=== PATIENT | female | born 1970 | race Caucasian/White ===

== ENCOUNTER 2021-08-07 14:27 | Emergency (ER) | payer OTHER | END 2021-08-07 16:46 | disposition left against medical advice (07) | LOC: CSHERS 14:27 | DX: Z53.21 Procedure and treatment not carried out due to patient leaving prior to being seen by health care provider (principal) ==

== ENCOUNTER 2021-09-21 02:00 | Emergency (ER) | payer OTHER ==
[2021-09-21 03:25] LABS: #Eosinphils 0.2 10x3/uL (0.0-0.5); #Monocytes 1.1 10x3/uL (0.0-1.1); #Neutrophils 6.8 10x3/uL (1.5-8.4); %Basophils 0.4 % (0.0-2.0); %Eosinophils 2.1 % (0.0-6.0); %Lymphocytes 14.5 % (18.0-47.0); %Monocytes 11.2 % (0.0-10.0); %Neutrophils 71.2 % (40.0-75.0); Hemoglobin 8.3 g/dL (12.0-15.5); Mean Corpuscular HGB CONC 32.7 g/dL (32.0-36.0); Mean Corpuscular Hemoglobin 29.4 pg (27.0-33.0); Mean Corpuscular Volume 90.1 fl (81.6-98.3); Mean Platelet Volume 9.6 fl (7.4-10.4); Platelet Count 311 10x3/uL (150-450); RBC Distribution Width 14.7 % (11.5-14.5); Red Blood Cell (RBC) Count 2.82 10x6/uL (3.90-5.03); White Blood Cell (WBC) Count 9.6 10x3/uL (3.5-10.5)
[2021-09-21 04:10] LABS: ALT (SGPT) 45 U/L (8-55); AST (SGOT) 54 U/L (5-34); Albumin 3.5 g/dL (3.5-5.0); Alkaline Phosphatase 366 U/L (40-110); Anion Gap 16 mmol/L (10-20); BUN (Urea Nitrogen) 16 mg/dL (7.0-18.7); Bilirubin, Total 0.2 mg/dL (0.2-1.2); Calc. Creatinine Clearance 0 mL/min (70-130); Calcium 8.6 mg/dL (7.8-10.44); Carbon Dioxide 22 mmol/L (22-29); Chloride 101 mmol/L (98-107); Globulin 3.2 g/dL (2.4-3.5); Glucose 408 mg/dL (70-105); Potassium 4.3 mmol/L (3.5-5.1); Protein, Total 6.7 g/dL (6.0-8.3); Sodium 135 mmol/L (136-145)
[2021-09-21 05:54] LABS: SARS-CoV-2 NAA Rapid Test DETECTED (NotDetected)
[2021-09-21] MEDS ORDERED: Ondansetron PF 4 MG/2 ML Vial ONE (05:56)
== END 2021-09-21 06:31 | disposition home or self-care (01) ==
LOC: CSHERS 02:00
DX: U07.1 COVID-19 (principal); K21.9 Gastro-esophageal reflux disease without esophagitis; E10.9 Type 1 diabetes mellitus without complications; E78.5 Hyperlipidemia, unspecified; I10 Essential (primary) hypertension; F17.210 Nicotine dependence, cigarettes, uncomplicated
CPT/HCPCS: 36415; 71045; 71275; 80053; 83880; 84484; 85025; 85379; 87804; 96374; J2405; U0002

== ENCOUNTER 2022-04-21 21:29 | Emergency (ER) | payer OTHER ==
[2022-04-21] MEDS ORDERED: Morphine 4 MG/ML VIAL ONE (22:32)
[2022-04-21] MEDS ORDERED: Ketorolac Tromethamine 30 MG/ML VIAL ONE (22:32)
[2022-04-21 23:15] LABS: #Basophils 0.1 10x3/uL (0.0-0.2); #Eosinphils 0.1 10x3/uL (0.0-0.5); #Monocytes 0.6 10x3/uL (0.0-1.1); #Neutrophils 5.4 10x3/uL (1.5-8.4); %Basophils 0.7 % (0.0-2.0); %Eosinophils 1.2 % (0.0-6.0); %Lymphocytes 29.3 % (18.0-47.0); %Monocytes 6.6 % (0.0-10.0); %Neutrophils 61.9 % (40.0-75.0); Hemoglobin 11.4 g/dL (12.0-15.5); Mean Corpuscular Volume 86.1 fl (81.6-98.3); Mean Platelet Volume 10.1 fl (7.4-10.4); Platelet Count 264 10x3/uL (150-450); RBC Distribution Width 12.2 % (11.5-14.5); Red Blood Cell (RBC) Count 3.68 10x6/uL (3.90-5.03); White Blood Cell (WBC) Count 8.7 10x3/uL (3.5-10.5)
[2022-04-21 23:22] LABS: Actual Bicarbonate (HCO3v) 28 mEq/L (22-28); Base Excess 3.8 mEq/L (-2.0 to +3.0); Calcium, Ionized (venous) 1.15 mmol/L (1.16-1.32); Chloride (VBG) 96 mmol/L (98-106); Hemoglobin (Hb) 12.4 g/dL (11.7-16.0); Potassium (VBG) 3.96 mmol/L (3.70-5.30); Puncture Site Other Site; RapidComm Collect By LAB; Sodium 129.6 mmol/L (133-146); pH (venous) 7.46 (7.32-7.43)
[2022-04-21 23:28] LABS: BHCG - Serum Negative (NEGATIVE); Pregs Control Background? CLEAR/WHITE (CLR/WHITE); Pregs Control Bar Appear? YES (CONTROL BAR)
[2022-04-21 23:36] LABS: ALT (SGPT) 9 U/L (8-55); AST (SGOT) 8 U/L (5-34); Albumin 3.6 g/dL (3.5-5.0); Alkaline Phosphatase 78 U/L (40-110); Anion Gap 16 mmol/L (10-20); BUN (Urea Nitrogen) 17 mg/dL (7.0-18.7); Bilirubin, Total 0.3 mg/dL (0.2-1.2); Calc. Creatinine Clearance 0 mL/min (70-130); Calcium 9.7 mg/dL (7.8-10.44); Carbon Dioxide 23 mmol/L (22-29); Chloride 94 mmol/L (98-107); Estimated GFR 62; Globulin 3.2 g/dL (2.4-3.5); Magnesium 1.6 mg/dL (1.6-2.6); Phosphorus 3.8 mg/dL (2.3-4.7); Potassium 3.9 mmol/L (3.5-5.1); Protein, Total 6.8 g/dL (6.0-8.3); Sodium 129 mmol/L (136-145)
[2022-04-21 23:39] LABS: Glucose 612 mg/dL (70-105)
[2022-04-22] MEDS ORDERED: Lantus 1000 UNITS/10 ML VIAL SC SCH (02:00)
== END 2022-04-22 03:40 | disposition home or self-care (01) ==
LOC: CSHERS 21:29
DX: E10.65 Type 1 diabetes mellitus with hyperglycemia (principal); M54.42 Lumbago with sciatica, left side; I10 Essential (primary) hypertension; F17.210 Nicotine dependence, cigarettes, uncomplicated; K21.9 Gastro-esophageal reflux disease without esophagitis; Z79.4 Long term (current) use of insulin
CPT/HCPCS: 36415; 36416; 80053; 82010; 82805; 83735; 84100; 84703; 85025; 96361; 96374; 96375; J1815; J1885; J2270

== ENCOUNTER 2022-05-07 13:43 | Inpatient (IN) | payer OTHER ==
[2022-05-07 14:08] LABS: Actual Bicarbonate (HCO3v) 19 mEq/L (22-28); Base Excess -4.3 mEq/L (-2.0 to +3.0); Calcium, Ionized (venous) 1.11 mmol/L (1.16-1.32); Chloride (VBG) 75 mmol/L (98-106); Hemoglobin (Hb) 14.1 g/dL (11.7-16.0); Potassium (VBG) 3.33 mmol/L (3.70-5.30); Puncture Site Other Site; pH (venous) 7.42 (7.32-7.43)
[2022-05-07 14:14] LABS: #Monocytes 0.9 10x3/uL (0.0-1.1); #Neutrophils 10.9 10x3/uL (1.5-8.4); %Basophils 0.3 % (0.0-2.0); %Eosinophils 0.1 % (0.0-6.0); %Lymphocytes 16.1 % (18.0-47.0); %Monocytes 6.2 % (0.0-10.0); %Neutrophils 76.9 % (40.0-75.0); Hemoglobin 13.5 g/dL (12.0-15.5); Mean Corpuscular HGB CONC 35.7 g/dL (32.0-36.0); Mean Corpuscular Hemoglobin 30.8 pg (27.0-33.0); Mean Corpuscular Volume 86.1 fl (81.6-98.3); Mean Platelet Volume 10.5 fl (7.4-10.4); Platelet Count 462 10x3/uL (150-450); RBC Distribution Width 11.8 % (11.5-14.5); Red Blood Cell (RBC) Count 4.39 10x6/uL (3.90-5.03); White Blood Cell (WBC) Count 14.1 10x3/uL (3.5-10.5)
[2022-05-07] MEDS ORDERED: Ondansetron PF 4 MG/2 ML Vial ONE (14:34)
[2022-05-07 14:54] LABS: Bilirubin Neg (Negative); Blood, Urine 25 (Negative); Glucose, Urine (Dipstick) >=1000 mg/dL (Negative); Ketone, Urine 150 mg/dL (Negative); Leukocyte 25 (Negative); Nitrite Negative (Negative); Protein, Urine (Dipstick) 100 mg/dl (Neg-Trace); Urobilinogen Normal mg/dL (Less than 2)
[2022-05-07 15:03] LABS: ALT (SGPT) 11 U/L (8-55); AST (SGOT) 9 U/L (5-34); Albumin 3.9 g/dL (3.5-5.0); Alkaline Phosphatase 103 U/L (40-110); Anion Gap 41 mmol/L (10-20); BUN (Urea Nitrogen) 69 mg/dL (7.0-18.7); Bilirubin, Total 0.3 mg/dL (0.2-1.2); Calc. Creatinine Clearance 0 mL/min (70-130); Calcium 9.8 mg/dL (7.8-10.44); Carbon Dioxide 21 mmol/L (22-29); Estimated GFR 24; Globulin 3.6 g/dL (2.4-3.5); Magnesium 2.7 mg/dL (1.6-2.6); Phosphorus 5.2 mg/dL (2.3-4.7); Potassium 3.2 mmol/L (3.5-5.1); Protein, Total 7.5 g/dL (6.0-8.3); Sodium 127 mmol/L (136-145)
[2022-05-07 15:05] LABS: Clarity Cloudy (Clear)
[2022-05-07 15:08] LABS: Chloride 68 mmol/L (98-107); Glucose 747 mg/dL (70-105)
[2022-05-07 15:11] LABS: Amphetamine Not Detected (NotDetected); Barbiturates Screen Not Detected (NotDetected); Benzodiazepine Screen Not Detected (NotDetected); Cocaine Metabolite Screen Not Detected (NotDetected); Methadone Not Detected (NotDetected); Methamphetamine Not Detected (NotDetected); Opiate Screen Not Detected (NotDetected); Oxycodone Screen Not Detected (NotDetected); Phencyclidine (PCP) Not Detected (NotDetected); THC/Cannabinoid Screen Detected (NotDetected); Tricyclic Screen Not Detected (NotDetected)
[2022-05-07 15:12] LABS: RBC/HPF 0-3 HPF (0-3)
[2022-05-07 15:13] LABS: Bacteria/HPF 1+ HPF (None Seen)
[2022-05-07] MEDS ORDERED: Morphine 4 MG/ML VIAL ONE (15:29)
[2022-05-07] MEDS ORDERED: NS 0.9% w/ 20 MEQ KCL 1,000 ML ONE (15:29)
[2022-05-07] MEDS ORDERED: cefTRIAXone\\ROCEPHIN 2 GM VIAL ONE (15:53)
[2022-05-07] MEDS ORDERED: Aspirin 300 MG Suppository ONE (15:53)
[2022-05-07] MEDS ORDERED: NS 0.9% w/ 20 MEQ KCL 1,000 ML IV PRN ×2 (16:05)
[2022-05-07] MEDS ORDERED: Electrolyte Replacement Protocol 1 EACH IVPB SCH (16:05)
[2022-05-07] MEDS ORDERED: Dextrose 5 %-0.45 % NaCl 1,000 ML IV PRN (16:05)
[2022-05-07] MEDS ORDERED: Sodium Chloride 0.9% 1,000 ML IV PRN ×4 (16:05)
[2022-05-07] MEDS ORDERED: Insulin Regular 300 UNITS/3 ML VIAL IVP SCH (16:15)
[2022-05-07] MEDS ORDERED: HUMULIN R 100 UNITS in Sodium Chloride 0.9% 100 ML IVPB SCH (16:15)
[2022-05-07] MEDS ORDERED: Insulin Regular 300 UNITS/3 ML VIAL ONE (16:27)
[2022-05-07] MEDS ORDERED: INSULIN REGULAR IN 0.9 % NACL 100 UNIT/100 ML BAG ONE (16:28)
[2022-05-07] MEDS ORDERED: Dextrose 50% Abboject 50 ML SYRINGE SLOW IVP PRN (16:30)
[2022-05-07] MEDS ORDERED: Dextrose 5% in Water 1,000 ML IV PRN (16:30)
[2022-05-07 16:52] LABS: Anion Gap 36 mmol/L (10-20); BUN (Urea Nitrogen) 61 mg/dL (7.0-18.7); Calc. Creatinine Clearance 0 mL/min (70-130); Calcium 8.4 mg/dL (7.8-10.44); Carbon Dioxide 19 mmol/L (22-29); Chloride 81 mmol/L (98-107); Estimated GFR 26; Potassium 3.3 mmol/L (3.5-5.1); Sodium 133 mmol/L (136-145)
[2022-05-07 17:16] LABS: Glucose 646 mg/dL (70-105)
[2022-05-07 17:31] LABS: Troponin I 0.033 ng/mL (< 0.028)
[2022-05-07 17:57] VITALS: BMI 24.7
[2022-05-07] MEDS ORDERED: INSULIN REGULAR IN 0.9 % NACL 100 UNIT in Premix Bag 1 BAG IVPB SCH (18:15)
[2022-05-07] MEDS ORDERED: Potassium Chloride 20 MEQ in Premix Bag 1 BAG IVPB SCH ×2 (18:15→22:00)
[2022-05-07 18:31] LABS: Glucose 468 mg/dL (70-105)
[2022-05-07] MEDS ORDERED: hydrALAZINE 20 MG/ML VIAL SLOW IVP PRN (18:42)
[2022-05-07] MEDS ORDERED: Electrolyte Replacement Protocol 1 EACH FS SCH (18:45)
[2022-05-07] MEDS: Famotidine/PF 20 mg/2ml Vial SLOW IVP SCH (20:32)
[2022-05-07] MEDS: Heparin 5,000 UNITS/ML VIAL SC SCH (20:32)
[2022-05-07 20:54] LABS: Anion Gap 23 mmol/L (10-20); BUN (Urea Nitrogen) 55 mg/dL (7.0-18.7); Calc. Creatinine Clearance 50 mL/min (70-130); Calcium 5.3 mg/dL (7.8-10.44); Carbon Dioxide 27 mmol/L (22-29); Chloride 92 mmol/L (98-107); Estimated GFR 38; Glucose 221 mg/dL (70-105); Potassium 3.1 mmol/L (3.5-5.1); Sodium 139 mmol/L (136-145)
[2022-05-07 20:55] LABS: Troponin I 0.035 ng/mL (< 0.028)
[2022-05-07 21:08] LABS: SARS-CoV-2 NAA Rapid Test Not Detected (NotDetected)
[2022-05-07] MEDS: D5 1/2 NS w/20 mEq KCL 1,000 ML IV PRN (21:15)
[2022-05-07] MEDS: CALCIUM GLUC 1GM/NS 50ML 1 GM in Premix Bag 1 BAG IVPB SCH ×2 (22:11→22:38)
[2022-05-08] MEDS ORDERED: Labetalol HCl 100 MG/20 ML VIAL SLOW IVP SCH (01:00)
[2022-05-08 01:07] LABS: Anion Gap 17 mmol/L (10-20); BUN (Urea Nitrogen) 48 mg/dL (7.0-18.7); Calc. Creatinine Clearance 49 mL/min (70-130); Calcium 8.8 mg/dL (7.8-10.44); Carbon Dioxide 27 mmol/L (22-29); Chloride 98 mmol/L (98-107); Estimated GFR 36; Glucose 258 mg/dL (70-105); Potassium 3.5 mmol/L (3.5-5.1); Sodium 138 mmol/L (136-145)
[2022-05-08] MEDS: D5 1/2 NS w/20 mEq KCL 1,000 ML IV PRN ×2 (01:57→05:41)
[2022-05-08] MEDS: traMADol HCl 50 MG TAB PO PRN ×3 (02:54→21:27)
[2022-05-08] MEDS ORDERED: Ondansetron PF 4 MG/2 ML Vial IVP SCH (03:00)
[2022-05-08 04:08] LABS: #Monocytes 0.9 10x3/uL (0.0-1.1); %Basophils 0.2 % (0.0-2.0); %Eosinophils 0.2 % (0.0-6.0); %Monocytes 7.4 % (0.0-10.0); %Neutrophils 72.8 % (40.0-75.0); Hemoglobin 10.7 g/dL (12.0-15.5); Mean Corpuscular HGB CONC 36.5 g/dL (32.0-36.0); Mean Corpuscular Hemoglobin 30.8 pg (27.0-33.0); Mean Corpuscular Volume 84.4 fl (81.6-98.3); Mean Platelet Volume 9.8 fl (7.4-10.4); RBC Distribution Width 12.1 % (11.5-14.5); Red Blood Cell (RBC) Count 3.47 10x6/uL (3.90-5.03); White Blood Cell (WBC) Count 12.6 10x3/uL (3.5-10.5)
[2022-05-08 04:09] LABS: Platelet Count 347 10x3/uL (150-450)
[2022-05-08 04:18] LABS: Anion Gap 13 mmol/L (10-20); BUN (Urea Nitrogen) 43 mg/dL (7.0-18.7); Calc. Creatinine Clearance 53 mL/min (70-130); Calcium 8.8 mg/dL (7.8-10.44); Carbon Dioxide 29 mmol/L (22-29); Chloride 100 mmol/L (98-107); Estimated GFR 40; Glucose 122 mg/dL (70-105); Magnesium 1.9 mg/dL (1.6-2.6); Sodium 139 mmol/L (136-145)
[2022-05-08 04:26] LABS: Phosphorus Less than 1.0 mg/dL (2.3-4.7)
[2022-05-08] MEDS ORDERED: Magnesium 2 GM/50 ML(in water) 2 GM in Premix Bag 1 BAG IVPB SCH (05:00)
[2022-05-08] MEDS ORDERED: Potassium Chloride 20 MEQ in Premix Bag 1 BAG IVPB SCH (05:00)
[2022-05-08] MEDS ORDERED: Potassium Phosphate 30 MMOL in Sodium Chloride 0.9% 250 ML 250 ML IVPB SCH (06:00)
[2022-05-08] MEDS: Lantus 1000 UNITS/10 ML VIAL SC SCH ×2 (08:15→20:13)
[2022-05-08] MEDS: Heparin 5,000 UNITS/ML VIAL SC SCH ×2 (08:15→20:21)
[2022-05-08] MEDS: PHOS-NAK 1 PKT PACK PO SCH ×3 (08:15→20:17)
[2022-05-08] MEDS: NS 0.9% w/ 20 MEQ KCL 1,000 ML/1,000 ML BAG IV SCH ×2 (09:58→20:12)
[2022-05-08] MEDS ORDERED: Mag-Al 1200 mg/1200 mg/30 ML UDCUP PO PRN (10:50)
[2022-05-08] MEDS: Calcium Carbonate 500 MG ChewTAB PO PRN (11:02)
[2022-05-08] MEDS: HumaLOG 300 UNITS/3 ML VIAL SC PRN ×3 (11:36→20:17)
[2022-05-08] MEDS: Acetaminophen 325 MG TAB PO PRN (11:42)
[2022-05-08] MEDS ORDERED: Lidocaine 2% Viscous Solution 10 ML, Aluminum & Magnesium Hydroxide 30 ML SSW SCH ×2 (11:45→22:00)
[2022-05-08] MEDS: Metoclopramide HCl 10 MG/2 ML VIAL IVP SCH ×3 (12:04→20:15)
[2022-05-08 12:41] LABS: Hemoglobin A1c Greater than 14.0 % (4.0-6.0)
[2022-05-08 13:38] LABS: Magnesium 2.3 mg/dL (1.6-2.6); Phosphorus 2.2 mg/dL (2.3-4.7)
[2022-05-08] MEDS: Cepastat Lozenges 1 LOZ PO PRN ×2 (15:46→18:22)
[2022-05-08] MEDS: cefTRIAXone\\ROCEPHIN 1 GM in Sodium Chloride 0.9% 100 ML IVPB SCH (15:46)
[2022-05-08] MEDS ORDERED: NS 0.9% w/ 20 MEQ KCL 1,000 ML ONE ×2 (19:58→19:59)
[2022-05-08] MEDS: Famotidine/PF 20 mg/2ml Vial SLOW IVP SCH (20:19)
[2022-05-09] MEDS: Cepastat Lozenges 1 LOZ PO PRN ×2 (02:00→04:22)
[2022-05-09 03:53] LABS: Anion Gap 12 mmol/L (10-20); BUN (Urea Nitrogen) 20 mg/dL (7.0-18.7); Calc. Creatinine Clearance 86 mL/min (70-130); Calcium 7.9 mg/dL (7.8-10.44); Carbon Dioxide 26 mmol/L (22-29); Chloride 105 mmol/L (98-107); Estimated GFR 71; Glucose 113 mg/dL (70-105); Phosphorus 1.3 mg/dL (2.3-4.7); Potassium 3.9 mmol/L (3.5-5.1); Sodium 139 mmol/L (136-145)
[2022-05-09] MEDS: Acetaminophen 325 MG TAB PO PRN (03:54)
[2022-05-09 04:29] LABS: #Eosinphils 0.1 10x3/uL (0.0-0.5); #Monocytes 0.6 10x3/uL (0.0-1.1); #Neutrophils 4.8 10x3/uL (1.5-8.4); %Basophils 0.4 % (0.0-2.0); %Eosinophils 1.3 % (0.0-6.0); %Monocytes 6.1 % (0.0-10.0); %Neutrophils 53.5 % (40.0-75.0); Hemoglobin 9.9 g/dL (12.0-15.5); Mean Corpuscular HGB CONC 36.1 g/dL (32.0-36.0); Mean Corpuscular Hemoglobin 31.5 pg (27.0-33.0); Mean Corpuscular Volume 87.3 fl (81.6-98.3); Mean Platelet Volume 10.1 fl (7.4-10.4); Platelet Count 252 10x3/uL (150-450); RBC Distribution Width 12.3 % (11.5-14.5); Red Blood Cell (RBC) Count 3.14 10x6/uL (3.90-5.03)
[2022-05-09] MEDS: Metoclopramide HCl 10 MG/2 ML VIAL IVP SCH ×4 (06:08→21:47)
[2022-05-09] MEDS: NS 0.9% w/ 20 MEQ KCL 1,000 ML/1,000 ML BAG IV SCH (06:08)
[2022-05-09] MEDS ORDERED: Magnesium 2 GM/50 ML(in water) 2 GM in Premix Bag 1 BAG IVPB SCH (08:00)
[2022-05-09] MEDS ORDERED: Potassium Phosphate 22 MMOL in Sodium Chloride 0.9% 250 ML 250 ML IVPB SCH (08:00)
[2022-05-09] MEDS: Heparin 5,000 UNITS/ML VIAL SC SCH ×2 (08:40→21:47)
[2022-05-09] MEDS: Aspirin 81 mg Enteric Coated Tablet PO SCH (08:43)
[2022-05-09] MEDS: Amlodipine 10 MG TAB PO SCH (08:43)
[2022-05-09] MEDS: PHOS-NAK 1 PKT PACK PO SCH ×3 (08:46→21:45)
[2022-05-09] MEDS: Lantus 1000 UNITS/10 ML VIAL SC SCH ×2 (08:47→21:47)
[2022-05-09] MEDS ORDERED: Furosemide 40 MG/4 ML VIAL SLOW IVP SCH (09:00)
[2022-05-09] MEDS ORDERED: Morphine 2 MG/ML VIAL SLOW IVP SCH (09:00)
[2022-05-09] MEDS ORDERED: Scopolamine 1.5 mg/72 hour Patch TD SCH (09:00)
[2022-05-09] MEDS ORDERED: Potassium Chloride 20 MEQ TAB PO SCH (09:00)
[2022-05-09] MEDS: Acetaminophen/Codeine 30-300mg Tablet PO PRN ×2 (12:09→18:40)
[2022-05-09] MEDS: Aluminum & Magnesium Hydroxide 60 ML, diphenhydrAMINE 150 MG, Lidocaine 2% Viscous Solu... SSW SCH ×3 (12:12→21:50)
[2022-05-09] MEDS: Calcium Carbonate 500 MG ChewTAB PO PRN (12:38)
[2022-05-09] MEDS: Carvedilol 6.25 MG TAB PO SCH (16:37)
[2022-05-09] MEDS: cefTRIAXone\\ROCEPHIN 1 GM in Sodium Chloride 0.9% 100 ML IVPB SCH (16:39)
[2022-05-09] MEDS: HumaLOG 300 UNITS/3 ML VIAL SC PRN ×2 (16:42→21:48)
[2022-05-09] MEDS ORDERED: Atorvastatin Calcium 40 MG TAB PO SCH (21:00)
[2022-05-09] MEDS: Famotidine/PF 20 mg/2ml Vial SLOW IVP SCH (21:46)
[2022-05-10] MEDS ORDERED: Dextrose 50% Abboject 50 ML SYRINGE ONE ×2 (03:23→03:29)
[2022-05-10] MEDS ORDERED: Dextrose 50% Abboject 50 ML SYRINGE SLOW IVP SCH (04:15)
[2022-05-10] MEDS: Acetaminophen/Codeine 30-300mg Tablet PO PRN (05:14)
[2022-05-10 07:12] LABS: Anion Gap 16 mmol/L (10-20); BUN (Urea Nitrogen) 11 mg/dL (7.0-18.7); Calc. Creatinine Clearance 86 mL/min (70-130); Calcium 8.4 mg/dL (7.8-10.44); Carbon Dioxide 26 mmol/L (22-29); Chloride 98 mmol/L (98-107); Estimated GFR 72; Glucose 230 mg/dL (70-105); Magnesium 2.1 mg/dL (1.6-2.6); Phosphorus 2.3 mg/dL (2.3-4.7); Potassium 4.8 mmol/L (3.5-5.1); Sodium 135 mmol/L (136-145)
[2022-05-10] MEDS: Aluminum & Magnesium Hydroxide 60 ML, diphenhydrAMINE 150 MG, Lidocaine 2% Viscous Solu... SSW SCH (08:46)
[2022-05-10] MEDS: Aspirin 81 mg Enteric Coated Tablet PO SCH (08:48)
[2022-05-10] MEDS: Amlodipine 10 MG TAB PO SCH (08:48)
[2022-05-10] MEDS: Carvedilol 6.25 MG TAB PO SCH (08:49)
[2022-05-10] MEDS: PHOS-NAK 1 PKT PACK PO SCH (08:50)
[2022-05-10] MEDS: Heparin 5,000 UNITS/ML VIAL SC SCH (08:50)
[2022-05-10] MEDS: Metoclopramide HCl 10 MG/2 ML VIAL IVP SCH (08:50)
[2022-05-10] MEDS ORDERED: Famotidine/PF 20 mg/2ml Vial SLOW IVP SCH (09:00)
[2022-05-10] MEDS: Lantus 1000 UNITS/10 ML VIAL SC SCH (09:01)
[2022-05-10 12:02] VITALS: BP 93/54; TEMP 97.4
== END 2022-05-10 12:09 | disposition home or self-care (01) | DRG 638 ==
LOC: CSHERS 13:43 → CSHIMCU 17:54 → CSHTELE 05-09 09:20
PROVIDERS: ADMIT Family Medicine; ATTEND Family Medicine
PROC: 06HY33Z Insertion of Infusion Device into Lower Vein, Percutaneous Approach (ICD-10-PCS; principal; 2022-05-07)
DX: E11.10 Type 2 diabetes mellitus with ketoacidosis without coma (principal); N39.0 Urinary tract infection, site not specified; I10 Essential (primary) hypertension; E78.5 Hyperlipidemia, unspecified; G40.909 Epilepsy, unspecified, not intractable, without status epilepticus; K21.9 Gastro-esophageal reflux disease without esophagitis; F12.90 Cannabis use, unspecified, uncomplicated; E87.6 Hypokalemia; F17.210 Nicotine dependence, cigarettes, uncomplicated; E11.59 Type 2 diabetes mellitus with other circulatory complications; E11.43 Type 2 diabetes mellitus with diabetic autonomic (poly)neuropathy; K31.84 Gastroparesis; Z20.822 Contact with and (suspected) exposure to COVID-19; Z88.1 Allergy status to other antibiotic agents; Z79.4 Long term (current) use of insulin; Z79.899 Other long term (current) drug therapy; Z79.82 Long term (current) use of aspirin; Z98.51 Tubal ligation status; Z98.890 Other specified postprocedural states; Z91.19 Patient's noncompliance with other medical treatment and regimen
CPT/HCPCS: 36415; 36416; 71045; 80048; 80053; 80306; 81003; 81015; 82010; 82553; 82805; 83036; 83735; 83930; 84100; 84443; 84484; 85025; 93005; 94640; 94760; J0360; J0610; J0696; J1644; J1815; J1940; J2270; J2405; J2765; J3475; J3480; J3490; J7050; J7620; J7999; S0028

== ENCOUNTER 2022-12-11 17:01 | Inpatient (IN) | payer OTHER ==
[~2022-12-11 17:01] MED LIST: Iopamidol 300 61% 100 ML VIAL FS ONE
[2022-12-11] MEDS ORDERED: diphenhydrAMINE 50 MG/ML VIAL ONE (17:32)
[2022-12-11] MEDS ORDERED: Ketorolac Tromethamine 30 MG/ML VIAL ONE (17:33)
[2022-12-11] MEDS ORDERED: Metoclopramide HCl 10 MG/2 ML VIAL ONE (17:33)
[2022-12-11 18:10] LABS: #Basophils 0.1 10x3/uL (0.0-0.2); #Monocytes 1.3 10x3/uL (0.0-1.1); #Neutrophils 13.9 10x3/uL (1.5-8.4); %Basophils 0.4 % (0.0-2.0); %Eosinophils 0.2 % (0.0-6.0); %Lymphocytes 14.7 % (18.0-47.0); %Monocytes 7.2 % (0.0-10.0); Mean Corpuscular HGB CONC 34.1 g/dL (32.0-36.0); Mean Corpuscular Volume 84.9 fl (81.6-98.3); Mean Platelet Volume 9.8 fl (7.4-10.4); Platelet Count 407 10x3/uL (150-450); RBC Distribution Width 12.9 % (11.5-14.5); Red Blood Cell (RBC) Count 3.45 10x6/uL (3.90-5.03)
[2022-12-11 18:17] LABS: BHCG - Serum Negative (NEGATIVE); Pregs Control Background? CLEAR/WHITE (CLR/WHITE); Pregs Control Bar Appear? YES (CONTROL BAR)
[2022-12-11] MEDS ORDERED: Vancomycin 1 GM VIAL ONE (18:20)
[2022-12-11] MEDS ORDERED: Cefepime 2 GM VIAL ONE (18:21)
[2022-12-11 18:22] LABS: ALT (SGPT) 6 U/L (8-55); AST (SGOT) 9 U/L (5-34); Albumin 3.6 g/dL (3.5-5.0); Alkaline Phosphatase 77 U/L (40-110); Anion Gap 19 mmol/L (10-20); BUN (Urea Nitrogen) 32 mg/dL (7.0-18.7); Bilirubin, Total 0.4 mg/dL (0.2-1.2); Calc. Creatinine Clearance 0 mL/min (70-130); Calcium 9.1 mg/dL (7.8-10.44); Carbon Dioxide 25 mmol/L (22-29); Chloride 93 mmol/L (98-107); Estimated GFR 44; Globulin 3.1 g/dL (2.4-3.5); Lipase 9 U/L (8-78); Magnesium 1.6 mg/dL (1.6-2.6); Phosphorus 4.3 mg/dL (2.3-4.7); Potassium 3.5 mmol/L (3.5-5.1); Protein, Total 6.7 g/dL (6.0-8.3); Sodium 133 mmol/L (136-145)
[2022-12-11 18:26] LABS: Glucose 471 mg/dL (70-105)
[2022-12-11] MEDS ORDERED: Insulin Regular 300 UNITS/3 ML VIAL ONE (18:37)
[2022-12-11 18:40] LABS: Actual Bicarbonate (HCO3v) 26 mEq/L (22-28); Base Excess 2.6 mEq/L (-2 - +2); Calcium, Ionized (venous) 1.08 mmol/L (1.16-1.32); Chloride (VBG) 94 mmol/L (98-106); Critical Notified By: Udy, RRT; Hemoglobin (Hb) 11.4 g/dL (11.7-16.0); Potassium (VBG) 3.56 mmol/L (3.70-5.30); Puncture Site Other Site; RapidComm Collect By Lab; Sodium 132.5 mmol/L (133-146); pH (venous) 7.48 (7.32-7.43)
[2022-12-11 18:45] LABS: CKMB 0.5 ng/mL (0-6.6)
[2022-12-11 19:17] LABS: Bilirubin Neg (Negative); Blood, Urine 25 (Negative); Glucose, Urine (Dipstick) >=1000 mg/dL (Negative); Ketone, Urine 15 mg/dL (Negative); Leukocyte 100 (Negative); Nitrite Negative (Negative); Protein, Urine (Dipstick) 500 mg/dl (Neg-Trace); Specific Gravity, Urine 1.015 (1.005-1.030); Urobilinogen Normal mg/dL (Less than 2)
[2022-12-11 19:23] LABS: Clarity Slightly Cloudy (Clear)
[2022-12-11 19:28] LABS: RBC/HPF 0-3 HPF (0-3); Squamous Epithelial 0-3 HPF (0-3); WBC/HPF 21-50 HPF (0-3)
[2022-12-11 19:29] LABS: Bacteria/HPF 2+ HPF (None Seen)
[2022-12-11] MEDS ORDERED: Morphine 4 MG/ML VIAL ONE (19:53)
[2022-12-11] MEDS ORDERED: Ondansetron PF 4 MG/2 ML Vial ONE (19:53)
[2022-12-11] MEDS ORDERED: Guaifenesin DM 100-10/5 ML UDCUP PO PRN (20:14)
[2022-12-11] MEDS ORDERED: Calcium Carbonate 500 MG ChewTAB PO PRN (20:14)
[2022-12-11] MEDS ORDERED: Dextrose 5% in Water 1,000 ML IV PRN (20:14)
[2022-12-11] MEDS ORDERED: Dextrose 50% Abboject 50 ML SYRINGE SLOW IVP PRN (20:14)
[2022-12-11] MEDS ORDERED: Acetaminophen 325 MG TAB PO PRN (20:14)
[2022-12-11] MEDS ORDERED: Magnesium Sulfate/D5W 1 GM/100 ML BAG IVPB SCH (20:30)
[2022-12-11 21:08] LABS: Lactic Acid 2.9 mmol/L (0.5-2.2)
[2022-12-11] MEDS ORDERED: Atorvastatin Calcium 40 MG TAB PO SCH (21:30)
[2022-12-11] MEDS ORDERED: Famotidine/PF 20 mg/2ml Vial SLOW IVP SCH (21:30)
[2022-12-11] MEDS ORDERED: Lantus 1000 UNITS/10 ML VIAL SC SCH (21:30)
[2022-12-11 21:46] VITALS: BMI 21.4
[2022-12-11] MEDS ORDERED: Potassium Chloride 20 MEQ in Premix Bag 1 BAG IVPB SCH (22:00)
[2022-12-11] MEDS: Ondansetron PF 4 MG/2 ML Vial IVP PRN (22:04)
[2022-12-11] MEDS: metroNIDAZOLE 500 MG in Premix Bag 1 BAG IVPB SCH (22:05)
[2022-12-11] MEDS: Lactated Ringer's 1,000 ML IV SCH (22:05)
[2022-12-11] MEDS: Nicotine 21 MG PATCH TD SCH (22:07)
[2022-12-11] MEDS: HYDROcodone/Acetaminophen 5/325 mg Tablet PO PRN (22:27)
[2022-12-11] MEDS ORDERED: FLU VACC QS2022-23(6MO UP)/PF 60 MCG/0.5 ML SYRINGE IM ONE (22:30)
[2022-12-12] MEDS: HumaLOG 300 UNITS/3 ML VIAL SC PRN ×2 (00:27→17:03)
[2022-12-12] MEDS ORDERED: Metoclopramide HCl 10 MG/2 ML VIAL IVP SCH (02:45)
[2022-12-12] MEDS: HYDROcodone/Acetaminophen 5/325 mg Tablet PO PRN ×3 (05:13→22:00)
[2022-12-12 05:22] LABS: #Basophils 0.1 10x3/uL (0.0-0.2); #Eosinphils 0.2 10x3/uL (0.0-0.5); #Monocytes 1.2 10x3/uL (0.0-1.1); #Neutrophils 11.2 10x3/uL (1.5-8.4); %Basophils 0.5 % (0.0-2.0); %Lymphocytes 21.7 % (18.0-47.0); %Monocytes 7.3 % (0.0-10.0); %Neutrophils 69.2 % (40.0-75.0); Hemoglobin 9.7 g/dL (12.0-15.5); Mean Corpuscular HGB CONC 33.8 g/dL (32.0-36.0); Mean Corpuscular Hemoglobin 29.2 pg (27.0-33.0); Mean Corpuscular Volume 86.4 fl (81.6-98.3); Mean Platelet Volume 9.7 fl (7.4-10.4); Platelet Count 355 10x3/uL (150-450); RBC Distribution Width 12.9 % (11.5-14.5); Red Blood Cell (RBC) Count 3.32 10x6/uL (3.90-5.03); White Blood Cell (WBC) Count 16.2 10x3/uL (3.5-10.5)
[2022-12-12 05:32] LABS: Lactic Acid 2.1 mmol/L (0.5-2.2)
[2022-12-12 05:39] LABS: ALT (SGPT) Less than 6 U/L (8-55); AST (SGOT) 11 U/L (5-34); Albumin 3.4 g/dL (3.5-5.0); Alkaline Phosphatase 68 U/L (40-110); Anion Gap 16 mmol/L (10-20); BUN (Urea Nitrogen) 27 mg/dL (7.0-18.7); Bilirubin, Total 0.3 mg/dL (0.2-1.2); Calc. Creatinine Clearance 58 mL/min (70-130); Carbon Dioxide 25 mmol/L (22-29); Chloride 101 mmol/L (98-107); Estimated GFR 53; Globulin 2.4 g/dL (2.4-3.5); Glucose 151 mg/dL (70-105); Magnesium 1.9 mg/dL (1.6-2.6); Potassium 3.6 mmol/L (3.5-5.1); Protein, Total 5.8 g/dL (6.0-8.3); Sodium 138 mmol/L (136-145)
[2022-12-12] MEDS: metroNIDAZOLE 500 MG in Premix Bag 1 BAG IVPB SCH ×3 (06:09→22:05)
[2022-12-12 06:11] LABS: CKMB 0.6 ng/mL (0-6.6)
[2022-12-12] MEDS: Carvedilol 6.25 MG TAB PO SCH ×2 (07:57→16:56)
[2022-12-12] MEDS: Ondansetron PF 4 MG/2 ML Vial IVP PRN (07:58)
[2022-12-12] MEDS ORDERED: cefTRIAXone\\ROCEPHIN 2 GM in Sodium Chloride 0.9% 100 ML IVPB SCH (09:00)
[2022-12-12] MEDS: Amlodipine 10 MG TAB PO SCH (09:22)
[2022-12-12] MEDS: Aspirin 81 mg Enteric Coated Tablet PO SCH (09:23)
[2022-12-12] MEDS: Famotidine/PF 20 mg/2ml Vial SLOW IVP SCH ×2 (09:29→21:41)
[2022-12-12] MEDS: Cefepime 2 GM in Sodium Chloride 0.9% 100 ML IVPB SCH ×2 (09:36→21:41)
[2022-12-12] MEDS: Metoclopramide HCl 10 MG/2 ML VIAL IVP PRN ×2 (09:54→21:41)
[2022-12-12] MEDS: Lactated Ringer's 1,000 ML IV SCH ×3 (09:54→22:02)
[2022-12-12 13:03] LABS: Hemoglobin A1c 11.3 % (4.0-6.0)
[2022-12-12] MEDS: Morphine 4 MG/ML VIAL SLOW IVP PRN ×2 (13:15→18:14)
[2022-12-12] MEDS: Atorvastatin Calcium 40 MG TAB PO SCH (21:40)
[2022-12-12] MEDS: Lantus 1000 UNITS/10 ML VIAL SC SCH (21:52)
[2022-12-12] MEDS: Nicotine 21 MG PATCH TD SCH (22:00)
[2022-12-13] MEDS: Metoclopramide HCl 10 MG/2 ML VIAL IVP PRN ×3 (04:18→15:59)
[2022-12-13] MEDS: Lactated Ringer's 1,000 ML IV SCH ×2 (05:54→12:00)
[2022-12-13] MEDS: metroNIDAZOLE 500 MG in Premix Bag 1 BAG IVPB SCH ×2 (05:54→16:19)
[2022-12-13] MEDS: Morphine 4 MG/ML VIAL SLOW IVP PRN (08:54)
[2022-12-13] MEDS: Famotidine/PF 20 mg/2ml Vial SLOW IVP SCH ×2 (08:59→20:36)
[2022-12-13] MEDS: Aspirin 81 mg Enteric Coated Tablet PO SCH (08:59)
[2022-12-13] MEDS: Cefepime 2 GM in Sodium Chloride 0.9% 100 ML IVPB SCH ×2 (08:59→20:35)
[2022-12-13] MEDS: Carvedilol 6.25 MG TAB PO SCH ×2 (08:59→15:54)
[2022-12-13] MEDS: Amlodipine 10 MG TAB PO SCH (09:00)
[2022-12-13] MEDS ORDERED: traMADol HCl 50 MG TAB PO PRN (14:40)
[2022-12-13] MEDS ORDERED: Morphine 2 MG/ML VIAL SLOW IVP PRN (14:49)
[2022-12-13] MEDS: Lantus 1000 UNITS/10 ML VIAL SC SCH (20:35)
[2022-12-13] MEDS: Atorvastatin Calcium 40 MG TAB PO SCH (20:36)
[2022-12-13] MEDS: Nicotine 21 MG PATCH TD SCH (20:40)
[2022-12-13 22:45] VITALS: BP 136/70; TEMP 98.3
== END 2022-12-14 02:30 | disposition left against medical advice (07) | DRG 872 ==
LOC: CSHERS 17:01 → CSHICU 21:10 → CSHTELE 12-12 17:17
PROVIDERS: ADMIT Student in an Organized Health Care Education/Training Program; ATTEND Internal Medicine
PROC: 3E0234Z Introduction of Serum, Toxoid and Vaccine into Muscle, Percutaneous Approach (ICD-10-PCS; principal; 2022-12-11)
DX: A41.9 Sepsis, unspecified organism (principal); N17.9 Acute kidney failure, unspecified; E87.20 Acidosis, unspecified; N30.00 Acute cystitis without hematuria; E87.3 Alkalosis; G40.909 Epilepsy, unspecified, not intractable, without status epilepticus; G43.909 Migraine, unspecified, not intractable, without status migrainosus; K21.9 Gastro-esophageal reflux disease without esophagitis; F17.210 Nicotine dependence, cigarettes, uncomplicated; F12.90 Cannabis use, unspecified, uncomplicated; E87.6 Hypokalemia; E83.42 Hypomagnesemia; E86.0 Dehydration; K52.9 Noninfective gastroenteritis and colitis, unspecified; Z91.14 Patient's other noncompliance with medication regimen; Z79.4 Long term (current) use of insulin; Z88.1 Allergy status to other antibiotic agents; Z88.8 Allergy status to other drugs, medicaments and biological substances; Z79.899 Other long term (current) drug therapy; Z98.2 Presence of cerebrospinal fluid drainage device; Z98.51 Tubal ligation status; Z98.890 Other specified postprocedural states; Z82.49 Family history of ischemic heart disease and other diseases of the circulatory system; Z80.9 Family history of malignant neoplasm, unspecified; Z87.442 Personal history of urinary calculi; D64.9 Anemia, unspecified; E11.65 Type 2 diabetes mellitus with hyperglycemia; M25.552 Pain in left hip; E78.5 Hyperlipidemia, unspecified; I10 Essential (primary) hypertension
CPT/HCPCS: 36415; 36416; 51701; 71045; 74177; 80053; 81003; 81015; 82010; 82553; 82805; 83036; 83605; 83690; 83735; 84100; 84484; 84703; 85025; 87040; 93005; 94760; 96365; 96366; 96367; 96372; 96375; 97139; J0692; J1200; J1650; J1815; J1885; J2270; J2272; J2405; J2765; J3370; J3475; J3480; J3490; J7120; Q9967; S0028

== ENCOUNTER 2023-01-14 23:51 | Emergency (ER) | payer OTHER | END 2023-01-15 00:39 | disposition home or self-care (01) | LOC: CSHERS 23:51 | DX: S91.302A Unspecified open wound, left foot, initial encounter (principal); E11.628 Type 2 diabetes mellitus with other skin complications; L08.9 Local infection of the skin and subcutaneous tissue, unspecified; I10 Essential (primary) hypertension; E78.5 Hyperlipidemia, unspecified; F17.210 Nicotine dependence, cigarettes, uncomplicated; X58.XXXA Exposure to other specified factors, initial encounter | CPT/HCPCS: 99282 ==

== ENCOUNTER 2023-01-16 08:11 | Outpatient (CLI) | payer OTHER | END 2023-01-16 08:12 | disposition home or self-care (01) | LOC: CSHWCC 08:11 | PROVIDERS: ATTEND Nurse Practitioner Family | DX: E11.621 Type 2 diabetes mellitus with foot ulcer (principal); L97.412 Non-pressure chronic ulcer of right heel and midfoot with fat layer exposed; L97.411 Non-pressure chronic ulcer of right heel and midfoot limited to breakdown of skin; R60.0 Localized edema | CPT/HCPCS: 11042; 99203; G0463 ==

== ENCOUNTER 2023-01-30 10:32 | Inpatient (IN) | payer OTHER ==
[~2023-01-30 10:32] MED LIST changes: -Iopamidol 300 61% 100 ML VIAL FS ONE; +Magnevist 469MG/ML 20 ML VIAL ONE
[2023-01-30] MEDS ORDERED: Vancomycin 1 GM VIAL ONE (11:40)
[2023-01-30 12:07] LABS: #Eosinphils 0.1 10x3/uL (0.0-0.5); #Monocytes 0.7 10x3/uL (0.0-1.1); #Neutrophils 7.4 10x3/uL (1.5-8.4); %Basophils 0.4 % (0.0-2.0); %Eosinophils 0.6 % (0.0-6.0); %Lymphocytes 23.9 % (18.0-47.0); %Monocytes 6.7 % (0.0-10.0); %Neutrophils 68.3 % (40.0-75.0); Hemoglobin 9.9 g/dL (12.0-15.5); Mean Corpuscular HGB CONC 33.6 g/dL (32.0-36.0); Mean Corpuscular Hemoglobin 29.2 pg (27.0-33.0); Mean Platelet Volume 10.1 fl (7.4-10.4); Platelet Count 342 10x3/uL (150-450); RBC Distribution Width 12.5 % (11.5-14.5); Red Blood Cell (RBC) Count 3.39 10x6/uL (3.90-5.03); White Blood Cell (WBC) Count 10.8 10x3/uL (3.5-10.5)
[2023-01-30] MEDS ORDERED: Morphine 4 MG/ML VIAL ONE (12:09)
[2023-01-30 12:21] LABS: CRP (Inflammatory) 4.36 mg/dL (= or < 0.5)
[2023-01-30 12:23] LABS: ALT (SGPT) Less than 6 U/L (8-55); AST (SGOT) 11 U/L (5-34); Albumin 3.6 g/dL (3.5-5.0); Alkaline Phosphatase 104 U/L (40-110); Anion Gap 16 mmol/L (10-20); BUN (Urea Nitrogen) 19 mg/dL (7.0-18.7); Bilirubin, Total 0.2 mg/dL (0.2-1.2); Calc. Creatinine Clearance 0 mL/min (70-130); Calcium 9.6 mg/dL (7.8-10.44); Carbon Dioxide 21 mmol/L (22-29); Chloride 99 mmol/L (98-107); Estimated GFR 48; Globulin 3.6 g/dL (2.4-3.5); Glucose 282 mg/dL (70-105); Lipase 26 U/L (8-78); Phosphorus 3.5 mg/dL (2.3-4.7); Potassium 4.4 mmol/L (3.5-5.1); Protein, Total 7.2 g/dL (6.0-8.3); Sodium 132 mmol/L (136-145)
[2023-01-30 12:23] LABS: Magnesium 1.7 mg/dL (1.6-2.6)
[2023-01-30 12:56] LABS: Actual Bicarbonate (HCO3v) 25.8 mEq/L (22-28); Base Excess -1.4 mEq/L (-2 - +2); Chloride (VBG) 98 mmol/L (98-106); Hemoglobin (Hb) 9.8 g/dL (11.7-16.0); Puncture Site Other Site; Sodium 133.2 mmol/L (133-146); pH (venous) 7.305 (7.32-7.43)
[2023-01-30] MEDS ORDERED: Ampicillin/Sulbactam 3 GM in Sodium Chloride 0.9% 100 ML IVPB SCH (13:45)
[2023-01-30] MEDS ORDERED: Cyclobenzaprine 10 MG TAB PO PRN (14:13)
[2023-01-30] MEDS ORDERED: Dextrose 50% Abboject 50 ML SYRINGE SLOW IVP PRN (14:16)
[2023-01-30] MEDS ORDERED: Insulin Regular 300 UNITS/3 ML VIAL SC PRN (14:16)
[2023-01-30] MEDS ORDERED: Acetaminophen 325 MG TAB PO PRN (14:16)
[2023-01-30] MEDS ORDERED: Dextrose 5% in Water 1,000 ML IV PRN (14:16)
[2023-01-30] MEDS ORDERED: Ondansetron PF 4 MG/2 ML Vial IVP PRN (14:16)
[2023-01-30] MEDS ORDERED: Divalproex Sodium DR 500 MG TAB PO SCH (15:30)
[2023-01-30] MEDS: HumaLOG 300 UNITS/3 ML VIAL SC SCH ×2 (15:41→22:42)
[2023-01-30 15:47] LABS: Lactic Acid 2.6 mmol/L (0.5-2.2)
[2023-01-30] MEDS ORDERED: Piperacillin/Tazobactam 3.375 GM in Sodium Chloride 0.9% 100 ML IVPB SCH ×2 (16:00→18:00)
[2023-01-30 16:36] VITALS: BMI 20.7
[2023-01-30] MEDS ORDERED: Promethazine 25 MG TAB PO PRN (16:43)
[2023-01-30] MEDS: Nicotine 21 MG PATCH TD SCH (16:51)
[2023-01-30] MEDS: HYDROcodone/Acetaminophen 5/325 mg Tablet PO PRN (17:42)
[2023-01-30] MEDS: Carvedilol 6.25 MG TAB PO SCH (17:43)
[2023-01-30] MEDS: metFORMIN 500 MG TAB PO SCH (17:43)
[2023-01-30] MEDS: Insulin Regular 300 UNITS/3 ML VIAL SC PRN (17:52)
[2023-01-30] MEDS: Metoclopramide HCl 10 MG TAB PO SCH (18:00)
[2023-01-30] MEDS: Divalproex Sodium DR 500 MG TAB PO SCH (22:22)
[2023-01-30] MEDS: Zolpidem Tartrate 5 MG TAB PO SCH (22:23)
[2023-01-30] MEDS: Atorvastatin Calcium 40 MG TAB PO SCH (22:23)
[2023-01-30] MEDS: Piperacillin/Tazobactam 3.375 GM in Sodium Chloride 0.9% 100 ML IVPB SCH (22:23)
[2023-01-30] MEDS: Lantus 1000 UNITS/10 ML VIAL SC SCH (22:42)
[2023-01-31] MEDS: Vancomycin HCl 750 MG in Sodium Chloride 0.9% 250 ML 250 ML IVPB SCH ×3 (01:00→17:46)
[2023-01-31 03:46] LABS: #Basophils 0.1 10x3/uL (0.0-0.2); #Eosinphils 0.2 10x3/uL (0.0-0.5); #Monocytes 0.7 10x3/uL (0.0-1.1); #Neutrophils 5.5 10x3/uL (1.5-8.4); %Basophils 0.5 % (0.0-2.0); %Eosinophils 1.5 % (0.0-6.0); %Lymphocytes 40.7 % (18.0-47.0); %Monocytes 6.2 % (0.0-10.0); %Neutrophils 50.8 % (40.0-75.0); Hemoglobin 8.1 g/dL (12.0-15.5); Mean Corpuscular HGB CONC 31.9 g/dL (32.0-36.0); Mean Corpuscular Hemoglobin 27.8 pg (27.0-33.0); Mean Corpuscular Volume 87.3 fl (81.6-98.3); Mean Platelet Volume 10.3 fl (7.4-10.4); Platelet Count 288 10x3/uL (150-450); RBC Distribution Width 12.5 % (11.5-14.5); Red Blood Cell (RBC) Count 2.91 10x6/uL (3.90-5.03); White Blood Cell (WBC) Count 10.7 10x3/uL (3.5-10.5)
[2023-01-31 03:52] LABS: Anion Gap 15 mmol/L (10-20); BUN (Urea Nitrogen) 18 mg/dL (7.0-18.7); Calc. Creatinine Clearance 67 mL/min (70-130); Calcium 8.5 mg/dL (7.8-10.44); Carbon Dioxide 21 mmol/L (22-29); Chloride 103 mmol/L (98-107); Estimated GFR 65; Glucose 106 mg/dL (70-105); Sodium 135 mmol/L (136-145)
[2023-01-31] MEDS: Piperacillin/Tazobactam 3.375 GM in Sodium Chloride 0.9% 100 ML IVPB SCH ×3 (05:14→21:50)
[2023-01-31] MEDS: Aspirin 81 mg Enteric Coated Tablet PO SCH (08:43)
[2023-01-31] MEDS: Carvedilol 6.25 MG TAB PO SCH ×2 (08:44→16:55)
[2023-01-31] MEDS: Amlodipine 10 MG TAB PO SCH (08:44)
[2023-01-31] MEDS: Divalproex Sodium DR 500 MG TAB PO SCH ×3 (08:44→21:50)
[2023-01-31] MEDS: metFORMIN 500 MG TAB PO SCH (08:44)
[2023-01-31] MEDS: Metoclopramide HCl 10 MG TAB PO SCH ×3 (08:44→16:45)
[2023-01-31 08:45] LABS: Lactic Acid 2.5 mmol/L (0.5-2.2)
[2023-01-31] MEDS ORDERED: Lisinopril 5 MG TAB PO SCH (09:00)
[2023-01-31] MEDS: HYDROcodone/Acetaminophen 5/325 mg Tablet PO PRN (09:55)
[2023-01-31] MEDS: HumaLOG 300 UNITS/3 ML VIAL SC SCH ×3 (09:55→22:09)
[2023-01-31] MEDS: Nicotine 21 MG PATCH TD SCH (14:57)
[2023-01-31] MEDS ORDERED: Lactated Ringer's 1,000 ML IV SCH (15:30)
[2023-01-31] MEDS: Atorvastatin Calcium 40 MG TAB PO SCH (21:50)
[2023-01-31] MEDS: Zolpidem Tartrate 5 MG TAB PO SCH (21:51)
[2023-01-31] MEDS: Lantus 1000 UNITS/10 ML VIAL SC SCH (22:10)
[2023-02-01 00:46] LABS: Vancomycin, Trough 17.8 ug/mL
[2023-02-01 04:25] LABS: Anion Gap 14 mmol/L (10-20); BUN (Urea Nitrogen) 23 mg/dL (7.0-18.7); Calc. Creatinine Clearance 59 mL/min (70-130); Calcium 8.4 mg/dL (7.8-10.44); Carbon Dioxide 20 mmol/L (22-29); Chloride 103 mmol/L (98-107); Estimated GFR 56; Glucose 174 mg/dL (70-105); Potassium 4.2 mmol/L (3.5-5.1); Sodium 133 mmol/L (136-145)
[2023-02-01 04:39] LABS: #Basophils 0.1 10x3/uL (0.0-0.2); #Eosinphils 0.1 10x3/uL (0.0-0.5); #Monocytes 0.5 10x3/uL (0.0-1.1); #Neutrophils 5.4 10x3/uL (1.5-8.4); %Basophils 0.7 % (0.0-2.0); %Eosinophils 1.5 % (0.0-6.0); %Lymphocytes 31.6 % (18.0-47.0); %Monocytes 5.7 % (0.0-10.0); %Neutrophils 60.3 % (40.0-75.0); Hemoglobin 8.4 g/dL (12.0-15.5); Mean Corpuscular HGB CONC 32.6 g/dL (32.0-36.0); Mean Corpuscular Hemoglobin 28.6 pg (27.0-33.0); Mean Corpuscular Volume 87.8 fl (81.6-98.3); Mean Platelet Volume 9.9 fl (7.4-10.4); Platelet Count 281 10x3/uL (150-450); RBC Distribution Width 12.7 % (11.5-14.5); Red Blood Cell (RBC) Count 2.94 10x6/uL (3.90-5.03); White Blood Cell (WBC) Count 8.9 10x3/uL (3.5-10.5)
[2023-02-01] MEDS: Piperacillin/Tazobactam 3.375 GM in Sodium Chloride 0.9% 100 ML IVPB SCH ×3 (05:21→19:59)
[2023-02-01] MEDS: Morphine 2 MG/ML VIAL SLOW IVP PRN ×3 (06:05→19:58)
[2023-02-01] MEDS: Insulin Regular 300 UNITS/3 ML VIAL SC PRN (06:18)
[2023-02-01] MEDS: HumaLOG 300 UNITS/3 ML VIAL SC SCH ×3 (08:47→22:55)
[2023-02-01] MEDS: Aspirin 81 mg Enteric Coated Tablet PO SCH (09:19)
[2023-02-01] MEDS: Amlodipine 10 MG TAB PO SCH (09:19)
[2023-02-01] MEDS: Carvedilol 6.25 MG TAB PO SCH ×2 (09:19→18:25)
[2023-02-01] MEDS: Divalproex Sodium DR 500 MG TAB PO SCH ×3 (09:19→21:49)
[2023-02-01] MEDS: Metoclopramide HCl 10 MG TAB PO SCH ×3 (09:21→18:26)
[2023-02-01] MEDS: Sodium Chloride 0.9% 1,000 ML IV SCH ×2 (12:29→22:53)
[2023-02-01] MEDS: Vancomycin HCl 750 MG in Sodium Chloride 0.9% 250 ML 250 ML IVPB SCH (12:30)
[2023-02-01] MEDS: Nicotine 21 MG PATCH TD SCH (17:28)
[2023-02-01] MEDS: Zolpidem Tartrate 5 MG TAB PO SCH (21:48)
[2023-02-01] MEDS: Atorvastatin Calcium 40 MG TAB PO SCH (21:49)
[2023-02-01] MEDS: HYDROcodone/Acetaminophen 5/325 mg Tablet PO PRN (21:49)
[2023-02-01] MEDS: Lantus 1000 UNITS/10 ML VIAL SC SCH (23:04)
[2023-02-02] MEDS: Vancomycin HCl 750 MG in Sodium Chloride 0.9% 250 ML 250 ML IVPB SCH ×2 (00:47→12:00)
[2023-02-02] MEDS ORDERED: clonazePAM 0.5 MG TAB PO SCH (02:30)
[2023-02-02 03:48] LABS: #Eosinphils 0.1 10x3/uL (0.0-0.5); #Monocytes 0.6 10x3/uL (0.0-1.1); #Neutrophils 4.1 10x3/uL (1.5-8.4); %Basophils 0.4 % (0.0-2.0); %Eosinophils 1.5 % (0.0-6.0); %Monocytes 7.5 % (0.0-10.0); %Neutrophils 55.2 % (40.0-75.0); Hemoglobin 8.6 g/dL (12.0-15.5); Mean Corpuscular HGB CONC 31.9 g/dL (32.0-36.0); Mean Corpuscular Volume 90.9 fl (81.6-98.3); Mean Platelet Volume 10.1 fl (7.4-10.4); Platelet Count 262 10x3/uL (150-450); RBC Distribution Width 12.7 % (11.5-14.5); Red Blood Cell (RBC) Count 2.97 10x6/uL (3.90-5.03); White Blood Cell (WBC) Count 7.4 10x3/uL (3.5-10.5)
[2023-02-02 03:51] LABS: Anion Gap 16 mmol/L (10-20); BUN (Urea Nitrogen) 26 mg/dL (7.0-18.7); Calc. Creatinine Clearance 61 mL/min (70-130); Calcium 8.4 mg/dL (7.8-10.44); Carbon Dioxide 20 mmol/L (22-29); Chloride 105 mmol/L (98-107); Estimated GFR 59; Glucose 156 mg/dL (70-105); Potassium 4.3 mmol/L (3.5-5.1); Sodium 137 mmol/L (136-145)
[2023-02-02] MEDS: Piperacillin/Tazobactam 3.375 GM in Sodium Chloride 0.9% 100 ML IVPB SCH ×2 (04:43→12:43)
[2023-02-02] MEDS: Sodium Chloride 0.9% 1,000 ML IV SCH (04:43)
[2023-02-02] MEDS: HYDROcodone/Acetaminophen 5/325 mg Tablet PO PRN (06:42)
[2023-02-02] MEDS: Metoclopramide HCl 10 MG TAB PO SCH ×2 (08:35→12:43)
[2023-02-02] MEDS: Carvedilol 6.25 MG TAB PO SCH (08:35)
[2023-02-02] MEDS: Amlodipine 10 MG TAB PO SCH (08:35)
[2023-02-02] MEDS: Divalproex Sodium DR 500 MG TAB PO SCH (08:36)
[2023-02-02] MEDS: Aspirin 81 mg Enteric Coated Tablet PO SCH (08:36)
[2023-02-02] MEDS: HumaLOG 300 UNITS/3 ML VIAL SC SCH (08:37)
[2023-02-02 12:14] VITALS: BP 140/66; TEMP 97.9
[2023-02-02 12:21] LABS: Vancomycin, Trough 22.1 ug/mL
[2023-02-02] MEDS ORDERED: Vancomycin HCl 500 MG in Sodium Chloride 0.9% 250 ML 250 ML IVPB SCH (13:00)
== END 2023-02-02 13:20 | disposition left against medical advice (07) | DRG 638 ==
LOC: CSHERS 10:32 → CSHTELE 14:25
PROVIDERS: ADMIT Internal Medicine; ATTEND Physician Assistant Medical
DX: E11.69 Type 2 diabetes mellitus with other specified complication (principal); M86.8X7 Other osteomyelitis, ankle and foot; E11.621 Type 2 diabetes mellitus with foot ulcer; K21.9 Gastro-esophageal reflux disease without esophagitis; E78.5 Hyperlipidemia, unspecified; I10 Essential (primary) hypertension; G40.909 Epilepsy, unspecified, not intractable, without status epilepticus; E11.51 Type 2 diabetes mellitus with diabetic peripheral angiopathy without gangrene; F17.210 Nicotine dependence, cigarettes, uncomplicated; L97.519 Non-pressure chronic ulcer of other part of right foot with unspecified severity; Z98.51 Tubal ligation status; Z98.890 Other specified postprocedural states; Z88.1 Allergy status to other antibiotic agents; Z88.8 Allergy status to other drugs, medicaments and biological substances; Z79.4 Long term (current) use of insulin; Z79.82 Long term (current) use of aspirin; Z79.899 Other long term (current) drug therapy
CPT/HCPCS: 36415; 36416; 80048; 80053; 80202; 82010; 82550; 82805; 83605; 83690; 83735; 84100; 85025; 86140; 87040; 93923; 97139; A9579; J0295; J1650; J1815; J2270; J2272; J2543; J3370; J3490; J7050; J7120; Q0169

== ENCOUNTER 2023-08-11 17:07 | Emergency (ER) | payer OTHER ==
[2023-08-11] MEDS ORDERED: Fluorescein Opthalmic Strip ONE (17:44)
[2023-08-11] MEDS ORDERED: Tetracaine 0.5% PF 4 ML BOT ONE (17:44)
[2023-08-11] MEDS ORDERED: HYDROcodone/Acetaminophen 5/325 mg Tablet ONE (18:01)
== END 2023-08-11 18:12 | disposition home or self-care (01) ==
LOC: CSHERS 17:07
DX: S05.02XA Injury of conjunctiva and corneal abrasion without foreign body, left eye, initial encounter (principal); M54.9 Dorsalgia, unspecified; E11.9 Type 2 diabetes mellitus without complications; K21.9 Gastro-esophageal reflux disease without esophagitis; I10 Essential (primary) hypertension; F17.210 Nicotine dependence, cigarettes, uncomplicated; X58.XXXA Exposure to other specified factors, initial encounter
CPT/HCPCS: 99283

== ENCOUNTER 2023-09-05 08:12 | Emergency (ER) | payer OTHER ==
[2023-09-05] MEDS ORDERED: Ketorolac Tromethamine 30 MG/ML VIAL ONE (09:35)
[2023-09-05] MEDS ORDERED: Cyclobenzaprine 10 MG TAB ONE (09:35)
[2023-09-05] MEDS ORDERED: oxyCODONE 5 MG TAB ONE (09:43)
== END 2023-09-05 09:51 | disposition home or self-care (01) ==
LOC: CSHERS 08:12
DX: M54.42 Lumbago with sciatica, left side (principal); F17.210 Nicotine dependence, cigarettes, uncomplicated; E11.9 Type 2 diabetes mellitus without complications; I10 Essential (primary) hypertension
CPT/HCPCS: 96372; 99283; J1885

== ENCOUNTER 2023-11-25 16:28 | Emergency (ER) | payer OTHER ==
[2023-11-25 17:10] LABS: Actual Bicarbonate (HCO3v) 27.2 mEq/L (22-28); Analyzer IN Cardio CS ER; Base Excess 3.4 mEq/L (-2 - +2); Calcium, Ionized (venous) 1.08 mmol/L (1.16-1.32); Chloride (VBG) 95 mmol/L (98-106); Critical Notified By: ASANCHEZ RT; Hematocrit-VBG 38 % (36.0-47.0); Hemoglobin (Hb) 12.8 g/dL (11.7-16.0); Potassium (VBG) 3.95 mmol/L (3.70-5.30); Puncture Site Other Site; RapidComm Collect By WRS.CH; Sodium 132 mmol/L (133-146)
[2023-11-25 17:20] LABS: #Monocytes 0.8 10x3/uL (0.0-1.1); #Neutrophils 6.1 10x3/uL (1.5-8.4); %Basophils 0.2 % (0.0-2.0); %Eosinophils 0.2 % (0.0-6.0); %Neutrophils 62.2 % (40.0-75.0); Hematocrit 34.5 % (34.9-44.5); Mean Corpuscular HGB CONC 34.8 g/dL (32.0-36.0); Mean Corpuscular Hemoglobin 28.8 pg (27.0-33.0); Mean Corpuscular Volume 82.9 fl (81.6-98.3); Mean Platelet Volume 9.7 fl (7.4-10.4); Platelet Count 330 10x3/uL (150-450); RBC Distribution Width 12.8 % (11.5-14.5); Red Blood Cell (RBC) Count 4.16 10x6/uL (3.90-5.03); White Blood Cell (WBC) Count 9.8 10x3/uL (3.5-10.5)
[2023-11-25] MEDS ORDERED: fentaNYL 50 mcg/mL 1 mL Vial ONE (17:31)
[2023-11-25] MEDS ORDERED: Ondansetron PF 4 MG/2 ML Vial ONE (17:31)
[2023-11-25 17:35] LABS: ALT (SGPT) 11 U/L (8-55); AST (SGOT) 11 U/L (5-34); Albumin 3.2 g/dL (3.5-5.0); Alkaline Phosphatase 144 U/L (40-110); Anion Gap 16 mmol/L (10-20); BUN (Urea Nitrogen) 23 mg/dL (9.8-20.1); Bilirubin, Total 0.4 mg/dL (0.2-1.2); Calc. Creatinine Clearance 0 mL/min (70-130); Calcium 8.8 mg/dL (7.8-10.44); Carbon Dioxide 23 mmol/L (22-29); Chloride 96 mmol/L (98-107); Estimated GFR 60; Globulin 3.8 g/dL (2.4-3.5); Lipase 17 U/L (8-78); Sodium 131 mmol/L (136-145)
[2023-11-25 17:38] LABS: Glucose 426 mg/dL (70-105)
[2023-11-25] MEDS ORDERED: Insulin Regular 300 UNITS/3 ML VIAL ONE (18:14)
== END 2023-11-25 19:15 | disposition home or self-care (01) ==
LOC: CSHERS 16:28
DX: E11.65 Type 2 diabetes mellitus with hyperglycemia (principal); I10 Essential (primary) hypertension; F17.210 Nicotine dependence, cigarettes, uncomplicated
CPT/HCPCS: 36416; 80053; 82010; 82805; 83605; 83690; 85025; 96374; 96375; J1815; J2405; J3010

== ENCOUNTER 2025-08-23 14:58 | Inpatient (IN) | payer OTHER ==
[~2025-08-23 14:58] MED LIST changes: +Iopamidol 370 76% 100 ML VIAL ONE; -Magnevist 469MG/ML 20 ML VIAL ONE
[2025-08-23] MEDS ORDERED: Fluorescein Opthalmic Strip ONE (15:15)
[2025-08-23] MEDS ORDERED: Proparacaine 0.5% Opth 15 ML BOT ONE (15:16)
[2025-08-23 16:03] LABS: #Basophils 0.03 10x3/uL (0.0-0.2); #Eosinophils Less than 0.03 10x3/uL (0.0-0.5); #Monocytes 0.36 10x3/uL (0.0-1.1); #Neutrophils 20.10 10x3/uL (1.5-8.4); %Basophils 0.1 % (0.0-2.0); %Eosinophils 0.0 % (0.0-6.0); %Lymphocytes 6.5 % (18.0-47.0); %Monocytes 1.6 % (0.0-10.0); %Neutrophils 91.3 % (40.0-75.0); Hematocrit 30.2 % (34.9-44.5); Hemoglobin 10.2 g/dL (12.0-15.5); Mean Corpuscular Hemoglobin 30.4 pg (27.0-33.0); Mean Corpuscular Volume 90.1 fL (81.6-98.3); Platelet Count 418 10x3/uL (150-450); Red Blood Cell (RBC) Count 3.35 10x6/uL (3.90-5.03); White Blood Cell (WBC) Count 22.04 10x3/uL (3.5-10.5)
[2025-08-23 16:24] LABS: INR-International Normal Ratio 1.0; PTT 29.9 sec (22.0-33.0); Prothrombin Time 11.0 sec (9.5-12.1)
[2025-08-23 16:33] LABS: ALT (SGPT) Less than 7 U/L (Less than 34); AST (SGOT) 14 U/L (11-34); Albumin 2.9 g/dL (3.1-4.5); Alkaline Phosphatase 179 U/L (40-110); Anion Gap 19 mmol/L (10-20); BUN (Urea Nitrogen) 41 mg/dL (9.8-20.1); Bilirubin, Total 0.2 mg/dL (0.3-1.2); Calc. Creatinine Clearance 0 mL/min (70-130); Calcium 8.7 mg/dL (7.8-10.44); Carbon Dioxide 19 mmol/L (22-29); Chloride 94 mmol/L (98-107); Globulin 4.3 g/dL (2.4-3.5); Potassium 5.7 mmol/L (3.5-5.1); Sodium 126 mmol/L (136-145)
[2025-08-23 16:35] LABS: Troponin I Less than 0.010 ng/mL (< 0.028)
[2025-08-23 16:43] LABS: Glucose 430 mg/dL (70-105)
[2025-08-23 16:57] LABS: Actual Bicarbonate (HCO3v) 20.7 mEq/L (22-28); Analyzer IN Cardio CS ER; Base Excess -4.0 mEq/L (-2 - +2); Calcium, Ionized (venous) 1.11 mmol/L (1.16-1.32); Chloride (VBG) 95 mmol/L (98-106); Critical Notified By: clumpkins rt; Hematocrit-VBG 32 % (36.0-47.0); Hemoglobin (Hb) 10.9 g/dL (11.7-16.0); Potassium (VBG) 5.52 mmol/L (3.70-5.30); Puncture Site Other Site; Sodium 128 mmol/L (133-146)
[2025-08-23] MEDS ORDERED: Metoclopramide HCl 10 MG (2 mL) VIAL ONE (18:21)
[2025-08-23 19:32] LABS: Anion Gap 17 mmol/L (10-20); BUN (Urea Nitrogen) 42 mg/dL (9.8-20.1); Calc. Creatinine Clearance 0 mL/min (70-130); Calcium 8.7 mg/dL (7.8-10.44); Carbon Dioxide 18 mmol/L (22-29); Chloride 97 mmol/L (98-107); Magnesium 1.9 mg/dL (1.6-2.6); Potassium 5.4 mmol/L (3.5-5.1); Sodium 127 mmol/L (136-145)
[2025-08-23 19:33] LABS: Acetaminophen Less than 10 mcg/mL (Less than 10); CK (CPK) 43 U/L (29-168); Salicylate Less than 8.0 mg/dL (Less than 8.0)
[2025-08-23 19:37] LABS: Glucose 404 mg/dL (70-105); Troponin I Less than 0.010 ng/mL (< 0.028)
[2025-08-23] MEDS ORDERED: Aspirin Chewable 81 MG TAB ONE (19:37)
[2025-08-23] MEDS ORDERED: Magnesium 2 GM/50 ML BAG (IN WATER) ONE (19:37)
[2025-08-23 19:44] LABS: Glucose, Urine (Dipstick) >=1000 mg/dL (Negative); Leukocyte 500 (Negative); Protein, Urine (Dipstick) 100 mg/dl (Neg-Trace); Specific Gravity, Urine 1.020 (1.005-1.030)
[2025-08-23 19:52] LABS: Cocaine Metabolite Screen Negative (Negative); THC/Cannabinoid Screen PRELIM POSITIVE (Negative); Tricyclic Screen Negative (Negative)
[2025-08-23 20:05] LABS: CAUTI Indications for Culture Acute Hematuria; RBC/HPF 0-3 HPF (0-3)
[2025-08-23 20:06] LABS: Bacteria/HPF 3+ HPF (None Seen); Urine Culture Reflex Yes Yes
[2025-08-23] MEDS ORDERED: Ondansetron PF 4 MG/2 ML Vial IVP PRN (21:09)
[2025-08-23] MEDS ORDERED: Calcium Carbonate 500 MG ChewTAB PO PRN (21:09)
[2025-08-23] MEDS ORDERED: Melatonin 3 MG TAB PO PRN (21:09)
[2025-08-23] MEDS ORDERED: Glucagon 1 MG/ML KIT IM PRN (21:09)
[2025-08-23] MEDS ORDERED: Dextrose 50% Abboject 50 ML SYRINGE SLOW IVP PRN (21:09)
[2025-08-23] MEDS ORDERED: Senokot S 8.6-50 MG TAB PO PRN (21:09)
[2025-08-23] MEDS ORDERED: Acetaminophen 325 MG TAB PO PRN (23:12)
[2025-08-23] MEDS: cefTRIAXone\\ROCEPHIN 1 GM in Sodium Chloride 0.9% 100 ML IVPB SCH (23:24)
[2025-08-23] MEDS: glipiZIDE 5 MG TAB PO SCH (23:26)
[2025-08-23] MEDS: guaiFENesin/Codeine Phosphate 100 mg/10 mg 5 ml UD Cup PO SCH (23:27)
[2025-08-23] MEDS: Lantus 1000 UNITS/10 ML VIAL SC SCH (23:27)
[2025-08-23] MEDS: oxyCODONE 5 MG TAB PO PRN (23:29)
[2025-08-23] MEDS: Erythromycin Base 0.5% Oint 1 GM TUBE EA EYE SCH (23:59)
[2025-08-24] MEDS: Benzonatate 100 MG CAP PO SCH ×2 (01:38→09:01)
[2025-08-24 04:37] LABS: #Basophils Less than 0.03 10x3/uL (0.0-0.2); #Eosinophils Less than 0.03 10x3/uL (0.0-0.5); #Monocytes 0.37 10x3/uL (0.0-1.1); #Neutrophils 15.02 10x3/uL (1.5-8.4); %Basophils 0.1 % (0.0-2.0); %Eosinophils 0.1 % (0.0-6.0); %Lymphocytes 9.8 % (18.0-47.0); %Monocytes 2.1 % (0.0-10.0); %Neutrophils 87.1 % (40.0-75.0); Hematocrit 28.2 % (34.9-44.5); Hemoglobin 9.3 g/dL (12.0-15.5); Mean Corpuscular Hemoglobin 30.4 pg (27.0-33.0); Mean Corpuscular Volume 92.2 fL (81.6-98.3); Platelet Count 409 10x3/uL (150-450); Red Blood Cell (RBC) Count 3.06 10x6/uL (3.90-5.03); White Blood Cell (WBC) Count 17.25 10x3/uL (3.5-10.5)
[2025-08-24 04:51] LABS: Anion Gap 19 mmol/L (10-20); BUN (Urea Nitrogen) 46 mg/dL (9.8-20.1); Calc. Creatinine Clearance 33 mL/min (70-130); Calcium 8.4 mg/dL (7.8-10.44); Carbon Dioxide 20 mmol/L (22-29); Cardiac Risk 11.0 (Less than 4.5); Chloride 94 mmol/L (98-107); Cholesterol 263 mg/dl (< 200 Desired); HDL Cholesterol 24 mg/dL (>60 Neg Risk); LDL Cholesterol, Calculated 179 mg/dL; Magnesium 2.3 mg/dL (1.6-2.6); Potassium 5.5 mmol/L (3.5-5.1); Sodium 127 mmol/L (136-145); Triglycerides 300 mg/dL (Less than 150)
[2025-08-24 04:56] LABS: Glucose 516 mg/dL (70-105)
[2025-08-24 04:58] LABS: Troponin I Less than 0.010 ng/mL (< 0.028)
[2025-08-24] MEDS: LOKELMA 10 GM PACKET PO SCH ×2 (05:18→12:44)
[2025-08-24] MEDS: glipiZIDE XL 5 mg ER.TAB PO SCH (09:00)
[2025-08-24] MEDS: Carvedilol 3.125 MG TAB PO SCH (09:00)
[2025-08-24] MEDS: Enoxaparin 40 MG (0.4 mL) SYRINGE SC SCH (09:00)
[2025-08-24] MEDS: Aspirin 81 mg Enteric Coated Tablet PO SCH (09:00)
[2025-08-24] MEDS: Pantoprazole 40 MG DR.TAB PO SCH (09:01)
[2025-08-24] MEDS: Sacubitril 24MG/Valsartan 26 MG TAB PO SCH (09:01)
[2025-08-24] MEDS: Alogliptin 6.25 MG TAB PO SCH (09:05)
[2025-08-24] MEDS: Divalproex Sodium 500 MG ER.TAB PO SCH (09:10)
[2025-08-24] MEDS: Acetaminophen 325 MG TAB PO PRN (09:22)
[2025-08-24] MEDS: Guaifenesin DM 100-10/5 ML UDCUP PO PRN (09:26)
[2025-08-24 12:09] LABS: Anion Gap 14 mmol/L (10-20); BUN (Urea Nitrogen) 47 mg/dL (9.8-20.1); Calc. Creatinine Clearance 34 mL/min (70-130); Calcium 8.0 mg/dL (7.8-10.44); Carbon Dioxide 18 mmol/L (22-29); Chloride 97 mmol/L (98-107); Glucose 294 mg/dL (70-105); Magnesium 2.1 mg/dL (1.6-2.6); Potassium 5.0 mmol/L (3.5-5.1); Sodium 124 mmol/L (136-145)
[2025-08-24] MEDS: GenTeal Tears Severe Dry Eye GEL 10 GM EA EYE PRN (18:40)
[2025-08-24] MEDS: Lantus 1000 UNITS/10 ML VIAL SC SCH (20:28)
[2025-08-25 04:31] LABS: #Basophils 0.03 10x3/uL (0.0-0.2); #Eosinophils 0.11 10x3/uL (0.0-0.5); #Monocytes 0.59 10x3/uL (0.0-1.1); #Neutrophils 6.66 10x3/uL (1.5-8.4); %Basophils 0.3 % (0.0-2.0); %Eosinophils 1.1 % (0.0-6.0); %Lymphocytes 26.3 % (18.0-47.0); %Monocytes 5.8 % (0.0-10.0); %Neutrophils 65.9 % (40.0-75.0); Hematocrit 29.2 % (34.9-44.5); Hemoglobin 9.7 g/dL (12.0-15.5); Mean Corpuscular Hemoglobin 30.0 pg (27.0-33.0); Mean Corpuscular Volume 90.4 fL (81.6-98.3); Platelet Count 402 10x3/uL (150-450); Red Blood Cell (RBC) Count 3.23 10x6/uL (3.90-5.03); White Blood Cell (WBC) Count 10.11 10x3/uL (3.5-10.5)
[2025-08-25 04:47] LABS: Anion Gap 18 mmol/L (10-20); BUN (Urea Nitrogen) 48 mg/dL (9.8-20.1); Calc. Creatinine Clearance 34 mL/min (70-130); Calcium 8.2 mg/dL (7.8-10.44); Carbon Dioxide 20 mmol/L (22-29); Chloride 98 mmol/L (98-107); Glucose 90 mg/dL (70-105); Magnesium 2.1 mg/dL (1.6-2.6); Potassium 4.6 mmol/L (3.5-5.1); Sodium 131 mmol/L (136-145)
[2025-08-25 05:17] VITALS: TEMP 96.7
[2025-08-25] MEDS: Metoclopramide HCl 10 MG (2 mL) VIAL IVP SCH (05:37)
[2025-08-25 11:41] VITALS: BP 144/64
== END 2025-08-25 12:29 | disposition home or self-care (01) | DRG 300 ==
LOC: CSHERS 14:58 → CSHTELE 21:09 → OBSVTOIN 08-24 16:21
PROVIDERS: ADMIT Student in an Organized Health Care Education/Training Program; ATTEND Hospitalist
DX: I82.402 Acute embolism and thrombosis of unspecified deep veins of left lower extremity (principal); E87.1 Hypo-osmolality and hyponatremia; N39.0 Urinary tract infection, site not specified; I13.0 Hypertensive heart and chronic kidney disease with heart failure and stage 1 through stage 4 chronic kidney disease, or unspecified chronic kidney disease; I50.22 Chronic systolic (congestive) heart failure; S05.01XA Injury of conjunctiva and corneal abrasion without foreign body, right eye, initial encounter; E11.65 Type 2 diabetes mellitus with hyperglycemia; I25.10 Atherosclerotic heart disease of native coronary artery without angina pectoris; E78.5 Hyperlipidemia, unspecified; E11.22 Type 2 diabetes mellitus with diabetic chronic kidney disease; N18.30 Chronic kidney disease, stage 3 unspecified; K21.9 Gastro-esophageal reflux disease without esophagitis; F17.210 Nicotine dependence, cigarettes, uncomplicated; E86.0 Dehydration; I73.9 Peripheral vascular disease, unspecified; G40.909 Epilepsy, unspecified, not intractable, without status epilepticus; Z86.73 Personal history of transient ischemic attack (TIA), and cerebral infarction without residual deficits; Z88.0 Allergy status to penicillin; Z88.8 Allergy status to other drugs, medicaments and biological substances; Z79.84 Long term (current) use of oral hypoglycemic drugs; Z79.4 Long term (current) use of insulin; Z79.899 Other long term (current) drug therapy; Z95.1 Presence of aortocoronary bypass graft; Z98.890 Other specified postprocedural states; Z98.51 Tubal ligation status
CPT/HCPCS: 36415; 36416; 70496; 70498; 71045; 80048; 80053; 80061; 80306; 80307; 81001; 82010; 82550; 82805; 83036; 83605; 83735; 84484; 85025; 85610; 85730; 87040; 87077; 87086; 87186; 93005; 93010; 96374; 96375; 96376; J0696; J1650; J1815; J2270; J2272; J2543; J2765; J3475; J7030; Q9967